=== PATIENT | male | born 1965 | race Caucasian/White ===

== ENCOUNTER → 2017-05-25 | Outpatient (CLI) | payer OTHER | END | disposition home or self-care (01) | DX: R26.2 Difficulty in walking, not elsewhere classified (principal); M25.562 Pain in left knee; M25.662 Stiffness of left knee, not elsewhere classified; M17.12 Unilateral primary osteoarthritis, left knee; M62.81 Muscle weakness (generalized); Z74.1 Need for assistance with personal care | CPT/HCPCS: 97161 GP; 97165 GO; 97530 GP; 97537 GO ==

== ENCOUNTER 2017-06-21 22:05 | Inpatient (IN) | payer OTHER ==
[~2017-06-21] VITALS: Ht 177.8 cm; Wt 192.3 kg
[~2017-06-21 22:05] MED LIST: ELIQUIS5 MG PO; IRON325 M1 PO; LASIX20 MG PO; LOTENSIN40 MG PO; MOBIC15 MG PO; NORVASC10 MG PO; SINGULAIR10 MG PO; TOPROL XL50 MG PO; ULTRAM50 MG PO
[2017-06-22] MEDS ORDERED: POTASSIUM GLUCO2 MEQ PO (06:08)
[2017-06-22 06:10] VITALS: BP 120/76
[2017-06-22 10:56] LABS: HEMATOCRIT 42.1 % (38.0-50.0); MCH 31.7 PG (29.0-34.0); MCHC 32.5 G/DL (30.0-36.0); MCV 97.5 FL (86-99); MEAN PLAT.VOLUME 9.9 uM^3 (9.0-12.4); PLATELET COUNT 227 K/uL (156-360); RBC DIS.WIDTH-SD 46.5 % (39-53); RED BLOOD COUNT 4.32 M/uL (4.00-5.50); WHITE BLOOD COUNT 6.6 K/uL (4.1-10.2)
[2017-06-22 11:32] VITALS: BP 129/66
[2017-06-22 15:46] VITALS: BP 109/59
[2017-06-22 20:20] VITALS: BP 125/64
[2017-06-23] VITALS (7 sets, daily range): BP systolic 84–141; BP diastolic 45–64
[2017-06-23 06:47] LABS: HEMATOCRIT 42.7 % (38.0-50.0); MCV 98.2 FL (86-99)
[2017-06-23 09:26] LABS: ANION GAP 10 MEQ/L (2-14); CHLORIDE 98 MEQ/L (99-109); GLUCOSE 124 mg/dL (70-99); SAMPLE HEMOLYSIS CHECK 0; SAMPLE ICTERIC CHECK 0; SAMPLE LIPEMIA CHECK 0
[2017-06-23 09:36] LABS: GFR ESTIMATE (CALCULATED) 32 mL/min/; SODIUM 134 MEQ/L (136-147); UREA NITROGEN (BUN) 28 mg/dL (9-23)
[2017-06-24] VITALS (7 sets, daily range): BP systolic 92–132; BP diastolic 51–81
[2017-06-24 05:53] LABS: EOSINOPHIL (%) 3.1 % (0-5); EOSINOPHIL COUNT 0.3 K/uL (0-0.3); HEMATOCRIT 37.3 % (38.0-50.0); IMMATURE GRANULOCYTE (%) 0.4 % (0.0-0.7); INSTRUMENT ABS NEUTROPHIL CT 6.5 K/uL; LYMPHOCYTE COUNT 0.9 K/uL (1.0-2.8); MCH 31.5 PG (29.0-34.0); MCHC 32.2 G/DL (30.0-36.0); MCV 97.9 FL (86-99); MEAN PLAT.VOLUME 10.6 uM^3 (9.0-12.4); MONOCYTE (%) 13.6 % (3-12); MONOCYTE COUNT 1.2 K/uL (0-0.8); NEUTROPHIL (%) 72.5 % (45-76); NEUTROPHIL COUNT 6.5 K/uL (1.8-6.4); PLATELET COUNT 197 K/uL (156-360); RBC DIS.WIDTH-CV 12.6 % (11.8-14.6); RBC DIS.WIDTH-SD 45.3 % (39-53); RED BLOOD COUNT 3.81 M/uL (4.00-5.50)
[2017-06-24 06:38] LABS: ANION GAP 5 MEQ/L (2-14); CHLORIDE 100 MEQ/L (99-109); GFR ESTIMATE (CALCULATED) 35 mL/min/; GLUCOSE 93 mg/dL (70-99); POTASSIUM 4.5 MEQ/L (3.7-5.4); SAMPLE HEMOLYSIS CHECK 0; SAMPLE ICTERIC CHECK 0; SAMPLE LIPEMIA CHECK 0; SODIUM 133 MEQ/L (136-147); UREA NITROGEN (BUN) 36 mg/dL (9-23)
[2017-06-24 15:10] LABS: ADD MIUA? YES; BILIRUBIN NEGATIVE; BLOOD MODERATE; COLOR YELLOW ((YELLOW)); GLUCOSE (STRIP) NEGATIVE; KETONES 5; LEUKOCYTES NEGATIVE; NITRITE NEGATIVE; PROTEIN (STRIP) 30; SPECIFIC GRAVITY 1.019 (1.000-1.030); UROBILINOGEN 0.2 MG/DL (0.2-1.0)
[2017-06-24 15:24] LABS: BACTERIA RARE /HPF; EPITHELIAL CELLS RARE /HPF; HYALINE CASTS 15-20 /LPF; MUCUS 1+ /LPF; RED BLOOD CELLS 0-5 /HPF (0-5); WHITE BLOOD CELLS 0-5 /HPF (0-5)
[2017-06-25 00:20] VITALS: BP 129/62
[2017-06-25 06:12] LABS: MCH 30.7 PG (29.0-34.0); MCHC 32.4 G/DL (30.0-36.0); MCV 94.6 FL (86-99); PLATELET COUNT 235 K/uL (156-360); RBC DIS.WIDTH-CV 12.5 % (11.8-14.6); RBC DIS.WIDTH-SD 43.2 % (39-53); RED BLOOD COUNT 3.91 M/uL (4.00-5.50); WHITE BLOOD COUNT 8.7 K/uL (4.1-10.2)
[2017-06-25 06:35] LABS: ANION GAP 4 MEQ/L (2-14); CHLORIDE 101 MEQ/L (99-109); GFR ESTIMATE (CALCULATED) > 59 mL/min/; GLUCOSE 96 mg/dL (70-99); POTASSIUM 4.6 MEQ/L (3.7-5.4); SAMPLE HEMOLYSIS CHECK 0; SAMPLE ICTERIC CHECK 0; SAMPLE LIPEMIA CHECK 0; SODIUM 135 MEQ/L (136-147); UREA NITROGEN (BUN) 22 mg/dL (9-23)
[2017-06-25 08:29] VITALS: BP 117/67
[2017-06-25 12:19] VITALS: BP 130/60
[2017-06-25 15:55] VITALS: BP 156/75
[2017-06-25 19:40] VITALS: BP 126/63
[2017-06-26 00:13] VITALS: BP 122/58
[2017-06-26 03:56] VITALS: BP 134/65
[2017-06-26 08:45] VITALS: BP 131/64
[2017-06-26 12:00] VITALS: BP 133/79
[2017-06-26 17:34] VITALS: BP 128/64
[2017-06-27] VITALS (7 sets, daily range): BP systolic 129–155; BP diastolic 55–77
[2017-06-27 21:36] LABS: POINT-OF-CARE METER ID UU14188577
[2017-06-28 03:39] VITALS: BP 136/63
[2017-06-28 08:03] VITALS: BP 130/76
[2017-06-28] MEDS ORDERED: TAMSULOSIN HCL0.4 MG PO (09:18)
[2017-06-28] MEDS ORDERED: ENDOCET 5-3251 EACH PO (09:18)
[2017-06-28] MEDS ORDERED: LOVENOX40 MG/0.4 SC (09:18)
== END 2017-06-28 11:19 | disposition home or self-care (01) | DRG 470 ==
LOC: ENRESERV 22:05 → 2SOUTH 06-22 05:25 → 3WEST 06-22 05:25 → 2SOUTH 06-22 11:38 → 3WEST 06-24 06:49 → ENRESERV 06-24 06:52 → 3EAST 06-24 15:45
PROVIDERS: Internal Medicine; Orthopaedic Surgery; Physician Assistant
PROC: 0SRD0J9 Replacement of Left Knee Joint with Synthetic Substitute, Cemented, Open Approach (ICD-10-PCS; principal; 2017-06-22)
DX: M17.12 Unilateral primary osteoarthritis, left knee (principal); N17.9 Acute kidney failure, unspecified; I48.1 Persistent atrial fibrillation; I95.89 Other hypotension; T46.4X5A Adverse effect of angiotensin-converting-enzyme inhibitors, initial encounter; T44.7X5A Adverse effect of beta-adrenoreceptor antagonists, initial encounter; T46.1X5A Adverse effect of calcium-channel blockers, initial encounter; I10 Essential (primary) hypertension; S80.821A Blister (nonthermal), right lower leg, initial encounter; R60.0 Localized edema; N40.1 Benign prostatic hyperplasia with lower urinary tract symptoms; R33.9 Retention of urine, unspecified; E66.9 Obesity, unspecified; Z68.44 Body mass index [BMI] 60.0-69.9, adult; Z79.01 Long term (current) use of anticoagulants
CPT/HCPCS: 71010; 73560; 80048; 81003; 82948; 85014; 85018; 85025; 85027; 87086; 94799; 97530 GP; C1713; J0690; J1170; J1650; J2250; J2405; J3010; J7030; J7050

== ENCOUNTER 2017-10-31 22:10 | Inpatient (IN) | payer OTHER ==
[~2017-10-31] VITALS: Ht 175.3 cm; Wt 179.0 kg
[~2017-10-31 22:10] MED LIST changes: +ENDOCET 5-3251 EACH PO; +LOVENOX40 MG/0.4 SC; +POTASSIUM GLUCO2 MEQ PO; +TAMSULOSIN HCL0.4 MG PO
[2017-11-01] MEDS ORDERED: MELOXICAM7.5 MG PO (10:22)
[2017-11-01 10:32] VITALS: BP 132/59
[2017-11-01 16:34] LABS: HEMATOCRIT 43.5 % (38.0-50.0); HEMOGLOBIN 13.9 G/DL (12.5-16.6); MCH 28.6 PG (29.0-34.0); MCV 89.5 FL (86-99); PLATELET COUNT 244 K/uL (156-360); RBC DIS.WIDTH-CV 13.3 % (11.8-14.6); RBC DIS.WIDTH-SD 43.8 % (39-53); RED BLOOD COUNT 4.86 M/uL (4.00-5.50); WHITE BLOOD COUNT 8.1 K/uL (4.1-10.2)
[2017-11-01 17:45] VITALS: BP 129/73
[2017-11-01 19:49] VITALS: BP 141/89
[2017-11-02 00:05] VITALS: BP 128/76
[2017-11-02 04:10] VITALS: BP 125/77
[2017-11-02 06:21] LABS: HEMOGLOBIN 13.5 G/DL (12.5-16.6); MCV 90.1 FL (86-99)
[2017-11-02 07:20] LABS: CHLORIDE 98 MEQ/L (99-109); GFR ESTIMATE (CALCULATED) > 59 mL/min/ (58.99-99999); GLUCOSE 115 mg/dL (70-99); POTASSIUM 4.2 MEQ/L (3.7-5.4); SODIUM 133 MEQ/L (136-147); UREA NITROGEN (BUN) 15 mg/dL (9-23)
[2017-11-02 08:00] VITALS: BP 120/62
[2017-11-02 12:02] VITALS: BP 125/71
[2017-11-02 15:44] VITALS: BP 129/67
[2017-11-02 19:38] VITALS: BP 117/74
[2017-11-03 00:05] VITALS: BP 111/58
[2017-11-03 04:05] VITALS: BP 139/67
[2017-11-03 06:42] LABS: HEMATOCRIT 38.3 % (38.0-50.0); HEMOGLOBIN 12.4 G/DL (12.5-16.6); MCV 88.2 FL (86-99)
[2017-11-03 08:13] VITALS: BP 125/76
[2017-11-03] MEDS ORDERED: DOCUSATE SODIU100 MG PO (08:49)
[2017-11-03] MEDS ORDERED: ENDOCET 5-3251 EACH PO (08:50)
[2017-11-03] MEDS ORDERED: CELECOXIB200 MG PO (08:50)
[2017-11-03 12:08] VITALS: BP 106/56
== END 2017-11-03 13:52 | DRG 470 ==
LOC: ENRESERV 22:10 → 2SOUTH 11-01 09:17 → 3WEST 11-01 17:22
PROVIDERS: Orthopaedic Surgery
PROC: 0SRC0J9 Replacement of Right Knee Joint with Synthetic Substitute, Cemented, Open Approach (ICD-10-PCS; principal; 2017-11-01)
DX: M17.11 Unilateral primary osteoarthritis, right knee (principal); E66.01 Morbid (severe) obesity due to excess calories; Z68.43 Body mass index [BMI] 50.0-59.9, adult; I48.91 Unspecified atrial fibrillation; I10 Essential (primary) hypertension; Z96.652 Presence of left artificial knee joint
CPT/HCPCS: 73560; 80048; 85014; 85018; 85027; C1713; J0690; J1170; J2250; J2795; J7050